=== PATIENT | female | born 1975 | race Caucasian/White ===

== ENCOUNTER 2021-04-13 12:38 | Emergency (ER) | payer OTHER ==
[~2021-04-13 12:38] MED LIST: CHANTIX1 EACH PO; LISINOPRIL 5 MG5 MG PO; OXYCODONE HCL10 MG PO; PANTOPRAZOLE SO40 MG PO
[2021-04-13] MEDS ORDERED: KEFLEX250 MG PO (14:49)
== END 2021-04-13 15:05 | disposition home or self-care (01) ==
LOC: FER 12:38
DX: S61.213A Laceration without foreign body of left middle finger without damage to nail, initial encounter (principal); F17.210 Nicotine dependence, cigarettes, uncomplicated; Z88.1 Allergy status to other antibiotic agents; Z23 Encounter for immunization; W22.8XXA Striking against or struck by other objects, initial encounter; Y92.009 Unspecified place in unspecified non-institutional (private) residence as the place of occurrence of the external cause
CPT/HCPCS: 73120; 90471; 90715